=== PATIENT | female | born 1990 | race Caucasian/White ===

== ENCOUNTER 2023-01-10 12:44 | Emergency (ER) | payer BC ==
[~2023-01-10] VITALS: Ht 154.9 cm; Wt 55.8 kg
--- NOTE | 2023-01-10 12:57 | NUR ---
BIBS C/O C/O MID CHEST PAIN THIS MORNING RADIATING TO LEFT ARM. VITALS ARE WITHIN NORMAL LIMITS. AWAITING MD CHARLES.
--- NOTE | 2023-01-10 13:00 | NUR ---
ESTABLISHED IV LINE 20 G RIGHT AC
--- NOTE | 2023-01-10 13:09 | NUR ---
URINE SAMPLE OBTAINED
--- NOTE | 2023-01-10 13:09 | NUR ---
BLOOD SAMPLE OBTAINED SENT TO LAB
--- NOTE | 2023-01-10 13:10 | NUR ---
EKG DONE BY EMT
[2023-01-10 13:32] LABS: BASOPHILS % (AUTO) 0.2 % (0.0-2.0); EOSINOPHILS % (AUTO) 2.7 % (0.0-6.0); HEMATOCRIT 40 % (33-45); HEMOGLOBIN 13.4 g/dL (11.5-14.8); LYMPHOCYTES # (AUTO) 2.4 K/uL (0.8-4.8); LYMPHOCYTES % (AUTO) 35.3 % (20.0-44.0); MEAN CORPUSCULAR HGB CONC 33 g/dl (31.0-36.0); MEAN CORPUSCULAR VOLUME 88 fL (82-100); MONOCYTES # (AUTO) 0.6 K/uL (0.1-1.30); MONOCYTES % (AUTO) 9.7 % (2.0-12.0); NEUTROPHILS # (AUTO) 3.5 K/uL (1.8-8.9); NEUTROPHILS % (AUTO) 52.1 % (43.0-81.0); PLATELET COUNT (AUTO) 259 K/uL (150-450); WHITE BLOOD COUNT (AUTO) 6.7 K/uL (4.3-11.0)
[2023-01-10 14:04] LABS: CALCIUM, SERUM 9.3 mg/dL (8.5-10.1); CARBON DIOXIDE 26 mmol/L (21-32); CHLORIDE 103 mmol/L (98-107); CREATININE 0.7 mg/dL (0.6-1.3); GLUCOSE 88 mg/dL (74-106); POTASSIUM 3.4 mmol/L (3.5-5.1); SODIUM SERUM 134 mmol/L (136-145); UREA NITROGEN, BLOOD 13 mg/dL (7-18)
[2023-01-10 14:42] VITALS: BP 132/86
--- NOTE | 2023-01-10 14:42 | NUR ---
Patient discharged to home in stable condition. Written and verbal after care instructions given. Patient verbalizes understanding of instruction.
== END 2023-01-10 14:43 | disposition home or self-care (01) ==
LOC: ER 12:44
DX: R07.89 Other chest pain (principal); F41.9 Anxiety disorder, unspecified; F17.290 Nicotine dependence, other tobacco product, uncomplicated
CPT/HCPCS: 36415; 71045-TC; 80048-TC; 84484-TC; 84703-TC; 85025-TC